=== PATIENT | male | born 1950 | race Caucasian/White ===

== ENCOUNTER 2020-12-30 01:06 | Emergency (ER) | payer OTHER, MEDICARE ==
[~2020-12-30] VITALS: Ht 170.2 cm; Wt 72.1 kg
[~2020-12-30 01:06] MED LIST: BUPR150T11 PO; BUSP15TA PO; CYCL5TAB PO; DOXA4TAB3 PO; HYDR-2155 PO; OMEP20CA16 PO; SERT100T PO
--- NOTE | 2020-12-30 01:19 | PHYS DOC ---
Past History Past Medical History: Anxiety, Arthritis, Dementia, Depression, GERD, High Cholesterol, Hypertension, UTI, Other Past Surgical History: Other Alcohol Use: None Drug Use: None General Adult EDM: Chief Complaint: ALTERED MENTAL STATUS HPI: HPI: ".. I guess I was not right... been somewhat pissed off.. so they had ambulance people come... too many things... too many things going on at ... the home..."..." [facility] refusing.. to go there... especially tonight.." Patient is a 70 year old male who presents with history of mental status change and aggressive behavior since 08 :00 yesterday. Patient does have a known history of dementia, anxiety, arthritis, hypertension. Patient normally follows the [place] for care. Patient reportedly became aggressive with paramedics and required sedation with Versed 5 mg . Pt. normally follows with Dr. Lott patient denies any travel. Patient denies any specific ill contacts. Patient denies any change in meds. Patient does have a past medical history of anxiety, GERD, episodes of vertigo and dizziness, dehydration and urinary tract infections. Patient does smoke tobacco use marijuana. Review of Systems: Review of Systems: Constitutional: Denies fever or chills Eyes: Denies change in visual acuity HENT: Denies nasal congestion or sore throat Respiratory: Denies cough or shortness of breath Cardiovascular: Denies chest pain or edema GI: Denies abdominal pain, nausea, vomiting, bloody stools or diarrhea : Denies dysuria Musculoskeletal: Denies back pain or joint pain Integument: Denies rash Neurologic: Denies headache, focal weakness or sensory changes Endocrine: Denies polyuria or polydipsia Lymphatic: Denies swollen glands Psychiatric: History of altered mental status Family History: Family History: Noncontributory to presentation Current Medications: Current Meds: See nursing for home meds Allergies: Allergies: Allergies Coded Allergies Type Severity Reaction Last Updated Verified Penicillins Allergy Unknown 04/16/14 Yes Physical Exam: PE: Constitutional:no acute distress, non-toxic appearance. [] HENT: Normocephalic, atraumatic, bilateral external ears normal, oropharynx moist, no oral exudates, nose normal. [] Eyes: PERRLA, EOMI, conjunctiva normal, no discharge. [] Neck: Normal range of motion, no tenderness, supple, no stridor. [] Cardiovascular:Heart rate regular rhythm, no murmur [] Lungs & Thorax: Bilateral breath sounds clear to auscultation [] Abdomen: Bowel sounds normal, soft, no tenderness, no masses, no pulsatile masses. [] Skin: Warm, dry, no erythema, no rash. [] Back: No tenderness, no CVA tenderness. [] Extremities: No tenderness, no cyanosis, no clubbing, ROM intact, no edema. [] Neurologic: Alert and oriented X 3, moves extremities on request, has distal sensory,, no focal deficits noted. [] Psychologic: Affect angry, judgement normal, mood normal. [] EKG: EKG: My interpretation EKG shows no acute morphology changes. A sinus rhythm 80 bpm. No acute morphology. Time EKG is 154 hours [] Radiology/Procedures: Radiology/Procedures: [][place] [address] IMAGING REPORT Signed PATIENT: DONNY BOTELLO ACCOUNT: [id number] : 1950 LOCATION: ER AGE: 70 SEX: M EXAM STATUS: REG ER ORD. PHYSICIAN: TIM GREGORIO MD REASON: dyspnea PROCEDURE: PORTABLE CHEST 1V EXAM: CHEST ONE VIEW. HISTORY: Dyspnea. COMPARISON: 04/16/2014. FINDINGS: A frontal view of the chest is obtained. There are no confluent infiltrates. There is no pneumothorax or pleural effusion. The heart is not enlarged. IMPRESSION: 1. No confluent infiltrates. Electronically signed by: Rebel Lacy MD (12/30/2020 2:07 AM) [facility] DICTATED AND SIGNED BY: NORBERTO LACY MD DATE: 12/30/20204 CC: TIM GREGORIO MD; ORENRUDYQUYEN M ~MTH0 [address] [address] IMAGING REPORT Signed PATIENT: DONNY BOTELLO ACCOUNT: [id number] : 1950 LOCATION: ER AGE: 70 SEX: M EXAM STATUS: REG ER ORD. PHYSICIAN: TIM GREGORIO MD REASON: altered mental status PROCEDURE: CT HEAD WO CONTRAST EXAM: CT HEAD WITHOUT CONTRAST. HISTORY: Altered mental status. TECHNIQUE: Computed tomography of the head was performed without intravenous contrast. One or more of the following individualized dose reduction techniques were utilized for this examination: 1. Automated exposure control. 2. Adjustment of the mA and/or kV according to patient size. 3. Use of iterative reconstruction technique. COMPARISON: None. FINDINGS: There is no intracranial hemorrhage. Hypoattenuation within the periventricular white matter indicates mild chronic microangiopathic change. The ventricles are normal in size and position. The visualized paranasal sinuses appear clear. The orbits are unremarkable. The temporal bones are unremarkable. The calvarium reveals no suspicious lesions. IMPRESSION: 1. No acute intracranial findings. Electronically signed by: Rebel Lacy MD (12/30/2020 2:09 AM) [facility] DICTATED AND SIGNED BY: NORBERTO LACY MD DATE: 12/30/20206 CC: TIM GREGORIO MD; LANI LOTT ~MTH0 0 Heart Score: C/O Chest Pain: N/A Risk Factors: Risk Factors: DM, Current or recent (<one month) smoker, HTN, HLP, family history of CAD, obesity. Risk Scores: Score 0 - 3: 2.5% MACE over next 6 weeks - Discharge Home Score 4 - 6: 20.3% MACE over next 6 weeks - Admit for Clinical Observation Score 7 - 10: 72.7% MACE over next 6 weeks - Early Invasive Strategies Course & Med Decision Making: Course & Med Decision Making Pertinent Labs and Imaging studies reviewed. (See chart for details) Patient is to follow-up with primary care. Patient push fluids especially vitamin C drinks. Patient take his Cipro 500 twice a day. Follow-up urine culture. Keep follow-up primary care. Return if any concerns. Impression: 1. Altered mental status 2. Poor impulse control 3. Anger management and behavioral issues 4. Thrombocytopenia 129 5. Urinary tract infection [] Dragon Disclaimer: Dragon Disclaimer: This electronic medical record was generated, in whole or in part, using a voice recognition dictation system. Departure Departure: Referrals: LANI LOTT (PCP) Scripts Ciprofloxacin (CIPRO) 500 Mg/5 Ml Laura..rec 500 MG PO BID for uti for 7 Days, MISC Prov: TIM GREGORIO MD 12/30/20 Dima Disclaimer This chart was dictated in whole or in part using Voice Recognition software in a busy, high-work load, and often noisy Emergency Department environment. It may contain unintended and wholly unrecognized errors or omissions. TIM GREGORIO MD Dec 30, 2020 01:19
[2020-12-30] MEDS ORDERED: IV RINGERS SOLUTION,LACTATED 1,000 ML IV SCH (01:30)
[2020-12-30] MEDS ORDERED: DICL112S2 TP (01:31)
[2020-12-30] MEDS ORDERED: CHOL10004 PO (01:31)
[2020-12-30] MEDS ORDERED: ENSURE PLUS PO (01:31)
[2020-12-30] MEDS ORDERED: lidocaine 5% patch TOP (01:31)
[2020-12-30] MEDS ORDERED: DONE10TA7 PO (01:31)
[2020-12-30] MEDS ORDERED: ATORVASTATIN CA80 MG PO (01:31)
[2020-12-30] MEDS ORDERED: MEMA10TA PO (01:31)
[2020-12-30] MEDS ORDERED: ACET500T68 PO (01:31)
[2020-12-30 01:55] LABS: CALCIUM 9.4 mg/dL (8.5-10.1); CREATININE 0.9 mg/dL (0.7-1.3); GFR 83.9
[2020-12-30 02:00] LABS: BARBITURATES NEG (NEG); BASO % 1 % (0-3); BENZODIAZEPINES POS (NEG); CANNABINOIDS POS (NEG); COCAINE NEG (NEG); EOS # 0.1 x10^3/uL (0.0-0.7); EOS % 2 % (0-3); HEMATOCRIT 39.4 % (39.0-53.0); HEMOGLOBIN 13.5 g/dL (13.0-17.5); LYMPH # 2.2 x10^3/uL (1.0-4.8); LYMPH % 32 % (24-48); MEAN CORPUSCULAR HEMOGLOBIN 33 pg (25-35); MEAN CORPUSCULAR HGB CONC 34 g/dL (31-37); MEAN CORPUSCULAR VOLUME 97 fL (79-100); METHADONE NEG (NEG); MONO # 0.7 x10^3/uL (0.0-1.1); MONO % 10 % (0-9); NEUT % 56 % (31-73); OPIATES NEG (NEG); PHENCYCLIDINE NEG (NEG); PLATELET COUNT 129 x10^3/uL (140-400); RED BLOOD COUNT 4.09 x10^6/uL (4.30-5.70); WHITE BLOOD COUNT 7.1 x10^3/uL (4.0-11.0)
[2020-12-30 02:01] LABS: BACTERIA,URINE FEW /HPF (0-FEW); BILIRUBIN,URINE NEG (NEG); CLARITY,URINE HAZY; COLOR,URINE YELLOW; GLUCOSE,URINE NEG (NEG); NITRITE,URINE NEG (NEG); RBC,URINE 0 /HPF (0-2); SQUAMOUS EPITHELIAL CELL,UR OCC /LPF; UROBILINOGEN,URINE 0.2 mg/dL (0.2 mg/dL)
[2020-12-30 02:05] LABS: AMPHETAMINE/METHAMPHETAMINE NEG (NEG)
[2020-12-30 02:07] LABS: ALBUMIN 3.6 g/dL (3.4-5.0); DIRECT BILIRUBIN 0.1 mg/dL (0.0-0.2); MAGNESIUM 2.1 mg/dL (1.8-2.4); TOTAL BILIRUBIN 0.3 mg/dL (0.2-1.0)
--- NOTE | 2020-12-30 02:09 | RAD ---
EXAM: CHEST ONE VIEW. HISTORY: Dyspnea. COMPARISON: 04/16/2014. FINDINGS: A frontal view of the chest is obtained. There are no confluent infiltrates. There is no pneumothorax or pleural effusion. The heart is not en larged. IMPRESSION: 1. No confluent infiltrates. Electronically signed by: Rebel Lacy MD (12/30/2020 2:07 AM) [facility]
--- NOTE | 2020-12-30 02:12 | RAD ---
EXAM: CT HEAD WITHOUT CONTRAST. HISTORY: Altered mental status. TECHNIQUE: Computed tomography of the head was performed without intravenous contrast. One or more of the following individualized dose reduction techniques were utilized for this examination: 1. Automated exposure control. 2. Adjustment of the mA and/or kV according to patient size. 3. Use of iterative reconstruction technique. COMPARISON: None. FINDINGS: There is no intracranial hemorrhage. Hypoattenuation within the periventricular white matte r indicates mild chronic microangiopathic change. The ventricles are normal in size and position. The visualized paranasal sinuses appear clear. The orbits are unremarkable. The temporal bones are un remarkable. The calvarium reveals no suspicious lesions. IMPRESSION: 1. No acute intracranial findings. Electronically signed by: Rebel Lacy MD (12/30/2020 2:09 AM) [facility]
--- NOTE | 2020-12-30 02:23 | EKG ---
[address] [address] Test Date: 2020-12-30 Test Time: 01:54:46 Pat Name: DONNY BOETLLO Department: Room: Gender: M Tong Setter: : 1950 Requested By: TIM GREGORIO Order Number: [id number] Reading MD: Measurements Intervals [place] Rate: 80 P: 1 IA: 148 QRS: 28 QRSD: 84 T: 61 QT: 360 QTc: 419 Interpretive Statements SINUS RHYTHM NORMAL ECG RI6.02 No previous ECG available for comparison
[2020-12-30] MEDS ORDERED: CIPROFLOXACIN HCL 500 MG TABLET ONE (02:51)
[2020-12-30] MEDS ORDERED: CIPR500S2 PO (02:52)
[2020-12-30] MEDS ORDERED: CIPROFLOXACIN HCL 500 MG TABLET PO ONE (03:00)
[2020-12-30 03:06] VITALS: BP 109/74
== END 2020-12-30 03:10 | disposition home or self-care (01) ==
LOC: ER 01:06
DX: R41.82 Altered mental status, unspecified (principal); K21.9 Gastro-esophageal reflux disease without esophagitis; E78.5 Hyperlipidemia, unspecified; I10 Essential (primary) hypertension
CPT/HCPCS: 36415; 70450; 71045; 80048; 80076; 80307; 81001; 82550; 83735; 83880; 84443; 84484; 85025; 87086; 93005; 96361; 96374; 99285; G0480; J2060; J7120